=== PATIENT | male | born 1975 | race Caucasian/White ===

== ENCOUNTER 2018-09-28 13:38 | Emergency (ER) | payer MEDICAID ==
[~2018-09-28] VITALS: Ht 165.1 cm; Wt 94.3 kg
[2018-09-28 13:51] VITALS: Ht 165.1 cm; Wt 94.3 kg
[2018-09-28 14:45] LABS: BASOPHIL % 0.4 % (0-2); PLATELET COUNT 347 x10^3mcL (130-400)
[2018-09-28 14:52] LABS: CALCIUM 9.1 mg/dL (8.5-10.1); CARBON DIOXIDE 32.7 mmol/L (21-32); CHLORIDE SERUM 99 mmol/L (98-107); CREATININE SERUM 0.9 mg/dL (0.7-1.3); GFR1 > 60 mL/min; GLUCOSE SERUM 193 mg/dL (74-106); POTASSIUM SERUM 3.3 mmol/L (3.5-5.1); SODIUM SERUM 139 mmol/L (136-145)
[2018-09-28 14:57] LABS: ALBUMIN 3.7 g/dL (3.4-5.0); ALKALINE PHOSPHATASE 54 U/L (46-116); ALT/SGPT 92 U/L (16-63); AST/SGOT 38 U/L (15-37); BILIRUBIN TOTAL 0.7 mg/dL (0.20-1.00); TOTAL PROTEIN, SERUM 7.6 g/dL (6.4-8.2)
[2018-09-28 17:47] VITALS: BP 130/71
== END 2018-09-28 17:59 | disposition home or self-care (01) ==
LOC: ED 13:38
PROVIDERS: Emergency Medicine
DX: T78.2XXA Anaphylactic shock, unspecified, initial encounter (principal); L50.0 Allergic urticaria; Z88.6 Allergy status to analgesic agent
CPT/HCPCS: J0171; J1200; J2930; J3490; J7030; J7613

== ENCOUNTER 2018-11-15 13:05 | Emergency (ER) | payer MEDICAID ==
[~2018-11-15] VITALS: Ht 152.4 cm; Wt 94.8 kg
[2018-11-15 13:12] VITALS: BP 133/85; Ht 152.4 cm; Wt 94.8 kg
== END 2018-11-15 17:11 | disposition left against medical advice (07) ==
LOC: ED 13:05
DX: Z53.21 Procedure and treatment not carried out due to patient leaving prior to being seen by health care provider (principal)